=== PATIENT | female | born 1975 | race Caucasian/White ===

== ENCOUNTER 2017-01-17 16:13 | Emergency (ER) | payer MEDICAID ==
[~2017-01-17] VITALS: Ht 152.4 cm; Wt 69.0 kg
[2017-01-17 16:17] VITALS: Ht 152.4 cm; Wt 69.0 kg
--- NOTE | 2017-01-17 16:57 | ERD ---
ER Documentation Chief Complaint Date/Time DATE: 01/17/17 TIME: 16:54 Chief Complaint pt [facility] , sent by clinic for " demise" approx 8 wks preg, HPI Patient is a 41-year-old female who is with one spontaneous approximately 8 weeks . She was seen at her OB clinic today and her ultrasound was consistent with demise and she was sent here to do a repeat ultrasound and blood work to evaluate for demise. She denies any vaginal bleeding. She admits to mild lower pelvic pain. States she also has mild nausea no vomiting. Denies fever. Denies any dysuria hematuria or frequency. She is currently taking her vitamins. ROS All systems reviewed and are negative except as per history of present illness. Allergies Allergies: Coded Allergies: No Known Allergy (Verified , 11/03/14) PMhx/Soc Medical and Surgical Hx: pt denies Medical Hx, pt denies Surgical Hx Hx Alcohol Use: No Hx Substance Use: No Hx Tobacco Use: No Smoking Status: Never smoker FmHx Family History: No diabetes Physical Exam Vitals Vital Signs Date Time Temp Pulse Resp B/P Pulse Ox O2 Delivery O2 Flow Rate FiO2 01/17/17 16:17 97.3 74 16 114/69 98 Physical Exam General: well developed, well nourished, alert, nontoxic, no distress Head: normocephalic, atraumatic Neck: Supple, nontender, no lymphadenopathy, no midline tenderness Respiratory: Clear to auscaultation bilaterally, speaks in full sentences, no use of accesory muscles or labored breathing, no rales, ronchi, or wheezing Cardiovascular: RRR, No murmurs GI: soft, non tender, non distended, negative murphys sign, negative mcburneys point tenderness, no cva tenderness bilaterally, no rebound or guarding Back: no midline tenderness, no step offs or bony abnormalities, sensation to light touch in tact Result Diagram: 01/17/17 1735 Results 24 hrs Laboratory Tests Test 01/17/17 17:35 01/17/17 17:55 White Blood Count 13.010^3/ul Red Blood Count 4.4810^6/ul Hemoglobin 13.9g/dl Hematocrit 41.7% Mean Corpuscular Volume 93.1fl Mean Corpuscular Hemoglobin 31.0pg Mean Corpuscular Hemoglobin Concent 33.3g/dl Red Cell Distribution Width 13.1% Platelet Count 16665^3/UL Mean Platelet Volume 10.2fl Neutrophils % 62.1% Lymphocytes % 26.8% Monocytes % 6.0% Eosinophils % 4.1% Basophils % 0.4% Nucleated Red Blood Cells % 0.0/100WBC Neutrophils # 8.110^3/ul Lymphocytes # 3.510^3/ul Monocytes # 0.810^3/ul Eosinophils # 0.510^3/ul Basophils # 0.110^3/ul Nucleated Red Blood Cells # 0.010^3/ul Beta HCG, Quantitative 44393.0mIU/ml Urine Color LT. YELLOW Urine Clarity CLEAR Urine pH 5.5 Urine Specific Lee <=1.005 Urine Ketones NEGATIVE Urine Nitrite NEGATIVE Urine Bilirubin NEGATIVE Urine Urobilinogen 0.2 E.U./dL Urine Leukocyte Esterase NEGATIVE Urine Microscopic RBC 0-2/HPF Urine Microscopic WBC 0-2/HPF Urine Squamous Epithelial Cells FEW Urine Calcium Oxalate Crystals FEW Urine Bacteria FEW Urine Hemoglobin TRACE Urine Glucose NEGATIVE% Urine Total Protein NEGATIVE Procedures/MDM 41-year-old female presents for evaluation of demise which was seen on her ultrasound when she went to her clinic today. She is well-appearing in no distress. Her vital signs are within normal limits. She has no vaginal bleeding. Repeat ultrasound and OB blood work was ordered. Patient's workup is consistent with demise. No evidence of ectopic . She is hemodynamically stable. She was given copies of all of her labs and ultrasound reports that she can follow up with her OB doctor for further management. Recommended this patient follow up with her primary care doctor within 48 hours or return to the emergency room for any worsening of symptoms. However this time I do believe there is suitable for outpatient management. I answered all their questions and they agreed with the plan and were discharged home. Departure Diagnosis: Primary Impression: demise Condition: Stable KAT RAMIREZ PA-C Jan 17, 2017 16:57
[2017-01-17 17:51] LABS: ADD SCAN DIFF NO
[2017-01-17 17:59] LABS: BASOPHIL # 0.1 10^3/ul (0.0-0.1); BASOPHILS % 0.4 % (0.0-2.0); EOSINOPHILS # 0.5 10^3/ul (0.0-0.5); EOSINOPHILS % 4.1 % (0.0-7.0); HEMATOCRIT 41.7 % (37.0-47.0); HEMOGLOBIN 13.9 g/dl (12.0-16.0); LYMPHOCYTES # 3.5 10^3/ul (0.8-2.9); LYMPHOCYTES % 26.8 % (15.0-51.0); MEAN CORPUSCULAR HGB CONC 33.3 g/dl (32.0-37.0); MEAN CORPUSCULAR VOLUME 93.1 fl (82.0-101.0); MEAN PLATELET VOLUME 10.2 fl (7.4-10.4); MONOCYTE # 0.8 10^3/ul (0.3-0.9); NEUTROPHIL # 8.1 10^3/ul (1.6-7.5); NEUTROPHILS % 62.1 % (39.0-77.0); PLATELET COUNT 312 10^3/UL (140-415); RED BLOOD COUNT 4.48 10^6/ul (4.20-5.40); RED CELL DISTRIBUTION WIDTH 13.1 % (11.5-14.5)
--- NOTE | 2017-01-17 18:10 | RADRPT ---
PROCEDURE: US OB. CLINICAL INDICATION: Pelvic pain. Vaginal bleeding TECHNIQUE: Transabdominal and transvaginal views of the pelvis are available for review. COMPARISON: No prior studies are available for comparison. FINDINGS: And interstitial sac diameter is 2.8 cm. Daisy-rump length:1.8 cm heart rate:None Ultrasound estimated gestational age: 8 weeks and 1 day Multiple hypoechoic structures in the uterus are seen with the largest measuring 2.7 x 2.7 x 2 cm in size. The right ovary measures 2.4 x 1.6 x 1.7 cm in size and the left ovary measures 3.1 x 1.6 x 1.3 cm i n size. No ovarian or adnexal mass lesion is seen. There is no free fluid. A small amount of fluid in the cervical canal seen. IMPRESSION: 1. Single intrauterine gestation without evidence of heart rate, the findings of which are wo rrisome for demise. Correlation with serial beta HCG levels is suggested as well as a short i nterval follow-up. 2. Leiomyomatous uterus. RPTAT: HPNM Physician Vesna Date Time Electronically viewed and signed by Physician Vesna on 01/17/2017 18:09 /
[2017-01-17 18:22] LABS: ADD UMIC YES; URINE BILIRUBIN (Dip) NEGATIVE (NEGATIVE); URINE BLOOD (Dip) TRACE (NEGATIVE); URINE COLOR LT. YELLOW (YELLOW); URINE GLUCOSE (Dip) NEGATIVE (NEGATIVE); URINE KETONES (Dip) NEGATIVE (NEGATIVE); URINE LEUKOCYTE ESTERASE (Dip) NEGATIVE (NEGATIVE); URINE NITRITE (Dip) NEGATIVE (NEGATIVE); URINE TOTAL PROTEIN (Dip) NEGATIVE (NEGATIVE); URINE UROBILINOGEN (Dip) 0.2 E.U./dL (0.1-1.0)
[2017-01-17 18:38] LABS: BACTERIA,URINE FEW; SQUAMOUS EPITHELIAL CELL,UR FEW; URINE RBCS 0-2 /HPF (0)
[2017-01-17 19:26] VITALS: BP 118/72; PULSE 85; RESP 16
== END 2017-01-17 19:27 | disposition home or self-care (01) ==
LOC: FTE 16:13
DX: O02.1 Missed abortion (principal); R10.2 Pelvic and perineal pain
CPT/HCPCS: 36415; 76801; 76817; 81001; 81003; 84702; 85025; 86900; 86901; Z7502

== ENCOUNTER 2018-02-20 13:46 | Inpatient (IN) | END 2018-02-21 23:08 | disposition home or self-care (01) | DRG 343 ==